=== PATIENT | female | born 1970 | race Caucasian/White ===

== ENCOUNTER 2017-12-15 19:20 | Emergency (ER) | payer OTHER ==
[~2017-12-15] VITALS: Ht 160 cm; Wt 105.9 kg
[2017-12-15] MEDS ORDERED: MEDROL DOSEPAK4 MG PO (21:29)
[2017-12-15] MEDS ORDERED: ROBAXIN750 MG PO (21:29)
[2017-12-15] MEDS ORDERED: ULTRAM50 MG PO (21:29)
[2017-12-15 21:45] VITALS: BP 155/106
== END 2017-12-15 21:47 | disposition home or self-care (01) ==
LOC: EME 19:20
PROC: 3E023BZ Introduction of Anesthetic Agent into Muscle, Percutaneous Approach (ICD-10-PCS; principal; 2017-12-15)
DX: M62.838 Other muscle spasm (principal); M54.6 Pain in thoracic spine; Z88.5 Allergy status to narcotic agent
CPT/HCPCS: 99281; 99284; J1885; S0020

== ENCOUNTER 2017-12-18 05:20 | Emergency (ER) | payer OTHER ==
[~2017-12-18] VITALS: Ht 160 cm; Wt 104.7 kg
[~2017-12-18 05:20] MED LIST: MEDROL DOSEPAK4 MG PO; ROBAXIN750 MG PO; ULTRAM50 MG PO
[2017-12-18 06:11] LABS: HEMATOCRIT 40.1 % (36.0-46.0); HEMOGLOBIN 13.4 G/DL (11.9-15.5); MCH 27.3 PG (29.0-34.0); MCHC 33.4 G/DL (30.0-36.0); MCV 81.8 FL (83-99); PLATELET COUNT 302 K/uL (156-360); RBC DIS.WIDTH-CV 13.1 % (11.8-14.6); RBC DIS.WIDTH-SD 38.6 % (39-53); WHITE BLOOD COUNT 10.2 K/uL (4.1-10.2)
[2017-12-18 06:25] LABS: CHLORIDE 107 mEq/L (99-109); POTASSIUM 4.1 mEq/L (3.7-5.4)
[2017-12-18 06:26] LABS: SODIUM 139 mEq/L (136-147)
[2017-12-18 06:27] LABS: GLUCOSE 112 mg/dL (70-99)
[2017-12-18] MEDS ORDERED: ZOFRAN4 MG PO (06:28)
[2017-12-18] MEDS ORDERED: LIDODERM 5% P1 PATCH TD (06:28)
[2017-12-18 06:31] LABS: CREATININE 0.7 mg/dL (0.6-1.3); GFR ESTIMATE (CALCULATED) > 59 mL/min/
[2017-12-18 06:32] LABS: UREA NITROGEN (BUN) 16 mg/dL (9-23)
[2017-12-18 06:41] LABS: TROP-I INTERPRETATION NEGATIVE; TROPONIN-I < 0.01 ng/mL (0.0-0.30)
[2017-12-18 07:26] VITALS: BP 134/86
== END 2017-12-18 07:28 | disposition home or self-care (01) ==
LOC: EME 05:20
PROVIDERS: Emergency Medicine
DX: M25.511 Pain in right shoulder (principal); G89.29 Other chronic pain; R11.0 Nausea; T50.995A Adverse effect of other drugs, medicaments and biological substances, initial encounter; Z88.5 Allergy status to narcotic agent
CPT/HCPCS: 71045; 80048; 84484; 85027; 93005; 99281; 99284; J1885; J2405; J7030